=== PATIENT | female | born 1960 | race Hispanic/Latino ===

== ENCOUNTER 2018-09-16 13:05 | Observation (INO) | payer MEDICARE ==
[~2018-09-16] VITALS: Ht 160 cm; Wt 110.5 kg
[~2018-09-16 13:05] MED LIST: ASPI-1197 PO; ATOR20TA65 PO; DULO60CA63 PO; FENO134C PO; FURO20TA4 PO; GLIM2TAB3 PO; INSU100I21 SQ; LISI1TAB11 PO; LORA0.5T2 PO; METO5TAB2 PO; MOME0.5P MC; PANT20TA12 PO; PIOG30TA70 PO; SOLI10TA PO; TOPI50TA24 PO; [UNRECOGNIZED DRUG - CODE] PO
[2018-09-16] MEDS ORDERED: ASPIRIN 325 MG TABLET ONE (13:44)
[2018-09-16 14:04] LABS: CREATINE KINASE, TOTAL 58 U/L (21-232); MYOGLOBIN 40 ng/mL (10-92); TROPONIN I < 0.04 ng/mL (0.00-0.06)
[2018-09-16 14:46] LABS: BASOPHILS % (AUTO) 0.7 % (0.0-5.0); EOSINOPHILS % (AUTO) 4.5 % (0.0-8.0); HEMATOCRIT 40.1 % (36-48); MEAN CORPUSCULAR HEMOGLOBIN 27.6 pg (27.0-33.0); MEAN CORPUSCULAR HGB CONC 33.3 g/dL (32.0-36.0); MEAN CORPUSCULAR VOLUME 83.1 fL (79-99); NEUTROPHILS % (AUTO) 66.8 % (40.0-77.0); PLATELET COUNT (AUTO) 286 K/uL (130-400); RED BLOOD CELL COUNT(AUTO) 4.82 MIL/uL (4.00-5.50); RED CELL DISTRIBUTION WIDTH 15.5 % (11.0-15.5); WHITE BLOOD COUNT (AUTO) 8.2 K/uL (4.8-10.8)
[2018-09-16 14:49] LABS: POTASSIUM 4.7 mmol/L (3.5-5.1)
[2018-09-16 14:51] LABS: PARTIAL THROMBOPLASTIN TIME 30.1 SEC (26.3-35.5); PROTHROMBIN TIME 10.5 SEC (9.6-11.6)
[2018-09-16 14:57] LABS: ALBUMIN 3.8 g/dL (3.5-5.0); BILIRUBIN,TOTAL 0.4 mg/dL (0.2-1.0); TOTAL PROTEIN, SERUM 7.1 g/dL (6.0-8.3)
[2018-09-16] MEDS ORDERED: MORPHINE SULFATE 2 MG/ML 1ML SYG IV PRN (18:00)
[2018-09-16] MEDS ORDERED: NITROGLYCERIN 0.4 MG SL TAB SL PRN (18:00)
[2018-09-16] MEDS ORDERED: ONDANSETRON HCL 4 MG/2 ML VIAL IV PRN (18:00)
[2018-09-16] MEDS ORDERED: ACETAMINOPHEN 325 MG TAB PO PRN ×2 (18:00)
[2018-09-16 19:02] LABS: CREATINE KINASE, TOTAL 43 U/L (21-232); MYOGLOBIN 27 ng/mL (10-92); TROPONIN I < 0.04 ng/mL (0.00-0.06)
[2018-09-16 19:06] VITALS: BP 149/89
[2018-09-16] MEDS ORDERED: IOHEXOL-350 75 ML VIAL IV ONE (22:18)
[2018-09-16] MEDS: FAMOTIDINE/PF 20 MG/2 ML VIAL IV SCH (22:33)
[2018-09-16 23:47] VITALS: BP 151/91
[2018-09-17 02:26] LABS: CREATINE KINASE, TOTAL 43 U/L (21-232); MYOGLOBIN 30 ng/mL (10-92); TROPONIN I < 0.04 ng/mL (0.00-0.06)
[2018-09-17 04:00] VITALS: BP 131/66
[2018-09-17] MEDS ORDERED: [UNRECOGNIZED DRUG - OTHER] PO (04:06)
[2018-09-17] MEDS ORDERED: PANT40TA25 PO (04:06)
[2018-09-17] MEDS ORDERED: LEVO50TA11 PO (04:06)
[2018-09-17] MEDS ORDERED: GABA-531 PO (04:11)
[2018-09-17] MEDS ORDERED: LIRA0.6P SQ (04:11)
[2018-09-17] MEDS ORDERED: INSU100V37 SQ (04:11)
[2018-09-17] MEDS ORDERED: HYDR-4068 PO (04:32)
[2018-09-17] MEDS ORDERED: LORA0.5T2 PO (04:32)
[2018-09-17 07:30] VITALS: BP 116/70
[2018-09-17] MEDS ORDERED: INSULIN HUMULIN R 100 UNIT/ML 3ML SQ SCH (07:30)
[2018-09-17] MEDS: FAMOTIDINE/PF 20 MG/2 ML VIAL IV SCH (08:40)
[2018-09-17] MEDS ORDERED: ENOXAPARIN SODIUM 40 MG/0.4 ML SYRINGE SQ SCH (09:00)
[2018-09-17] MEDS ORDERED: ASPIRIN 325 MG TABLET PO SCH (09:00)
[2018-09-17 10:23] LABS: CREATINE KINASE, TOTAL 42 U/L (21-232); MYOGLOBIN 29 ng/mL (10-92); TROPONIN I < 0.04 ng/mL (0.00-0.06)
[2018-09-17 11:00] VITALS: BP 157/90
--- NOTE | 2018-09-17 11:27 | NUR ---
DISCHARGE PATIENT GIVEN DISCHARGE INSTRUCTIONS VIA TEACH BACK. PATIENT TO FOLLOW UP WITH DR. ROSAS ON 09/24/18 AT 0930. NO RX GIVEN, PATIENT TO CONTINUE HOME MEDS. 20G PIV TO RFA DISCONTINUED, TIP INTACT. TELE REMOVED AND TAKEN TO TELEMETRY BY STEVE YORK. PATIENT STABLE AT THIS TIME.
== END 2018-09-17 11:30 | disposition home or self-care (01) ==
LOC: EDH 13:05 → EDHIP 17:55 → 3DH 19:07
PROVIDERS: ADMIT Family Medicine; ATTEND Family Medicine
DX: R07.89 Other chest pain (principal); E11.65 Type 2 diabetes mellitus with hyperglycemia; G47.30 Sleep apnea, unspecified; E78.2 Mixed hyperlipidemia; I10 Essential (primary) hypertension; K21.9 Gastro-esophageal reflux disease without esophagitis; E66.9 Obesity, unspecified; R79.1 Abnormal coagulation profile; Z79.4 Long term (current) use of insulin; Z79.82 Long term (current) use of aspirin; Z86.73 Personal history of transient ischemic attack (TIA), and cerebral infarction without residual deficits; Z90.711 Acquired absence of uterus with remaining cervical stump; Z82.49 Family history of ischemic heart disease and other diseases of the circulatory system; Z79.899 Other long term (current) drug therapy; Z88.1 Allergy status to other antibiotic agents
CPT/HCPCS: 36415 ×2; 71045; 71275; 80053; 82550 ×5; 82948 ×3; 83874 ×4; 84484 ×5; 85025; 85378; 85610; 85730; 93005; 93970; 96374; 96376; 99291; G0378 ×18; J3490 ×2; Q9967

== ENCOUNTER 2019-07-07 11:32 | Emergency (ER) | payer MEDICARE ==
[~2019-07-07 11:32] MED LIST changes: -ATOR20TA65 PO; -DULO60CA63 PO; +GABA-531 PO; -GLIM2TAB3 PO; +HYDR-4068 PO; -INSU100I21 SQ; +INSU100V37 SQ; +LEVO50TA11 PO; +LIRA0.6P SQ; -LISI1TAB11 PO; -METO5TAB2 PO; -MOME0.5P MC; -PANT20TA12 PO; +PANT40TA25 PO; -PIOG30TA70 PO; -SOLI10TA PO; -TOPI50TA24 PO; -[UNRECOGNIZED DRUG - CODE] PO; +[UNRECOGNIZED DRUG - OTHER] PO
[2019-07-07 12:45] LABS: BASOPHILS % (AUTO) 0.3 % (0.0-5.0); EOSINOPHILS % (AUTO) 0.5 % (0.0-8.0); HEMATOCRIT 44.8 % (36-48); LYMPHOCYTES % (AUTO) 11.5 % (21.0-51.0); MEAN CORPUSCULAR HEMOGLOBIN 25.4 pg (27.0-33.0); MEAN CORPUSCULAR HGB CONC 31.3 g/dL (32.0-36.0); MEAN CORPUSCULAR VOLUME 81.2 fL (79-99); MONOCYTES % (AUTO) 2.8 % (3.0-13.0); NEUTROPHILS % (AUTO) 84.2 % (40.0-77.0); PLATELET COUNT (AUTO) 355 K/uL (130-400); RED BLOOD CELL COUNT(AUTO) 5.52 MIL/uL (4.00-5.50); WHITE BLOOD COUNT (AUTO) 15.1 K/uL (4.8-10.8)
[2019-07-07 12:45] LABS: APPEARANCE,URINE Clear (CLEAR); BILIRUBIN,URINE Negative (NEGATIVE); COLOR,URINE Yellow (YELLOW); GLUCOSE, URINE (UA) >=1000 mg/dL (NEGATIVE); KETONES,URINE Trace mg/dL (NEGATIVE); LEUKOCYTE ESTERASE ,URINE Negative (NEGATIVE); NITRATE,URINE Negative (NEGATIVE); OCCULT BLOOD,URINE Trace (NEGATIVE); PROTEIN,URINE POS 1+ mg/dL (NEGATIVE)
[2019-07-07 12:57] LABS: BILIRUBIN,TOTAL 0.5 mg/dL (0.2-1.0); CREATININE 0.9 mg/dL (0.5-1.5)
[2019-07-07 13:30] LABS: POTASSIUM 4.4 mmol/L (3.5-5.1)
[2019-07-07 13:48] LABS: BACTERIA,URINE Rare /HPF (None Seen); RBC,URINE 0-1 /HPF (0-1); WBC,URINE None Seen /HPF (0-1)
[2019-07-07] MEDS ORDERED: SODIUM CHLORIDE 0.9% 1000ML 1,000 ML IV ONE (14:01)
[2019-07-07] MEDS ORDERED: ONDANSETRON HCL 4 MG/2 ML VIAL ONE (14:01)
[2019-07-07] MEDS ORDERED: MORPHINE SULFATE 4 MG/1ML SYG ONE (14:01)
[2019-07-07] MEDS ORDERED: CEFTRIAXONE SODIUM 1 GM ONE (16:13)
== END 2019-07-07 16:51 | disposition home or self-care (01) ==
LOC: EDH 11:32
DX: K52.9 Noninfective gastroenteritis and colitis, unspecified (principal); E11.9 Type 2 diabetes mellitus without complications; E78.5 Hyperlipidemia, unspecified; I10 Essential (primary) hypertension; Z88.1 Allergy status to other antibiotic agents
CPT/HCPCS: 36415; 74176; 76705; 80053; 81001; 82550; 83690; 84484; 85025; 93005; 96361; 96374; 96375; 99285; J0696; J2270; J2405; J7030

== ENCOUNTER 2020-11-21 16:51 | Emergency (ER) | payer OTHER, MEDICARE ==
[~2020-11-21] VITALS: Ht 160 cm; Wt 117.9 kg
[~2020-11-21 16:51] MED LIST changes: -PANT40TA25 PO; +PANT40TA54 PO
[2020-11-21 16:54] VITALS: BP 147/55
[2020-11-21 17:54] LABS: BASOPHILS % (AUTO) 0.3 % (0.0-5.0); EOSINOPHILS % (AUTO) 2.6 % (0.0-8.0); HEMATOCRIT 40.2 % (36-48); LYMPHOCYTES % (AUTO) 12.4 % (21.0-51.0); MEAN CORPUSCULAR HEMOGLOBIN 25.8 pg (27.0-33.0); MEAN CORPUSCULAR HGB CONC 30.6 g/dL (32.0-36.0); MEAN CORPUSCULAR VOLUME 84.3 fL (79-99); MONOCYTES % (AUTO) 8.5 % (3.0-13.0); NEUTROPHILS % (AUTO) 75.5 % (40.0-77.0); PLATELET COUNT (AUTO) 375 K/uL (130-400); RED BLOOD CELL COUNT(AUTO) 4.77 MIL/uL (4.00-5.50); RED CELL DISTRIBUTION WIDTH 15.9 % (11.0-15.5); WHITE BLOOD COUNT (AUTO) 15.2 K/uL (4.8-10.8)
[2020-11-21 18:08] VITALS: BP 101/66
[2020-11-21 18:09] VITALS: BP 114/43
[2020-11-21 18:14] LABS: CARBON DIOXIDE 29 mmol/L (21-32); CHLORIDE 101 mmol/L (101-111); CREATININE 1.5 mg/dL (0.5-1.5); GLOMERULAR FILTR. RATE CALC 38 mL/min (>60); GLUCOSE,RANDOM 268 mg/dL (70-105); POTASSIUM 5.3 mmol/L (3.5-5.1); SODIUM SERUM 139 mmol/L (136-145); UREA NITROGEN, BLOOD 29 mg/dL (7-18)
[2020-11-21 18:24] LABS: B-TYPE NATRIURETIC PEPTIDE 7 pg/mL (0-100)
[2020-11-21 18:41] LABS: ALANINE AMINOTRANSFERASE 17 U/L (12-78); ALBUMIN 3.6 g/dL (3.5-5.0); ASPARTATE AMINOTRANSFERASE 13 U/L (10-37); BILIRUBIN,TOTAL 0.3 mg/dL (0.2-1.0); CREATINE KINASE, TOTAL 40 U/L (21-232); TOTAL PROTEIN, SERUM 7.2 g/dL (6.0-8.3); TROPONIN I < 0.04 ng/mL (0.00-0.06)
[2020-11-21 18:58] LABS: MYOGLOBIN 81 ng/mL (10-92)
[2020-11-21 20:24] LABS: APPEARANCE,URINE Clear (CLEAR); BILIRUBIN,URINE Negative (NEGATIVE); COLOR,URINE Yellow (YELLOW); GLUCOSE, URINE (UA) >=1000 mg/dL (NEGATIVE); KETONES,URINE Negative (NEGATIVE); LEUKOCYTE ESTERASE ,URINE Negative (NEGATIVE); NITRATE,URINE Positive (NEGATIVE); OCCULT BLOOD,URINE Negative (NEGATIVE); PROTEIN,URINE Negative (NEGATIVE); UROBILINOGEN,URINE 0.2 mg/dL (0.2-1.0)
[2020-11-21 20:41] LABS: BACTERIA,URINE Moderate /HPF (None Seen); MUCUS,URINE Few LPF (None Seen); SQUAMOUS EPITHELIAL CELL,UR Few /HPF (0-2)
[2020-11-21] MEDS ORDERED: CEPH500B PO (22:57)
[2020-11-21] MEDS ORDERED: KAYEXALATE 15GM/60ML PO ONE (23:00)
[2020-11-21] MEDS ORDERED: CEFTRIAXONE 1G VIAL 1 GM in 0.9%NACL 50ML 50 ML IV ONE (23:00)
[2020-11-22 00:10] VITALS: BP 120/53
== END 2020-11-22 00:20 | disposition home or self-care (01) ==
LOC: EDH 16:51
DX: N39.0 Urinary tract infection, site not specified (principal); E11.65 Type 2 diabetes mellitus with hyperglycemia; M54.6 Pain in thoracic spine; E03.9 Hypothyroidism, unspecified; C20 Malignant neoplasm of rectum; E78.00 Pure hypercholesterolemia, unspecified; I10 Essential (primary) hypertension; Z79.899 Other long term (current) drug therapy; Z86.73 Personal history of transient ischemic attack (TIA), and cerebral infarction without residual deficits; Z88.1 Allergy status to other antibiotic agents; Z79.82 Long term (current) use of aspirin; Z79.4 Long term (current) use of insulin
CPT/HCPCS: 36415; 71275; 76705; 80053; 81001; 82550; 83690; 83874; 83880; 84484; 85025; 87077; 87088; 87186; 93005

== ENCOUNTER 2020-12-30 17:20 | Emergency (ER) | payer OTHER, MEDICARE ==
[~2020-12-30] VITALS: Ht 160 cm; Wt 112.5 kg
[~2020-12-30 17:20] MED LIST changes: +CEPH500B PO
[2020-12-30 17:23] VITALS: BP 141/65
[2020-12-30] MEDS ORDERED: PROMETHAZINE HCL 25 MG/ML 1ML AMPULE IM ONE (18:00)
[2020-12-30] MEDS ORDERED: MAG/ALUM/SIMETH 30 ML UDCUP PO ONE (18:00)
[2020-12-30] MEDS ORDERED: LIDOCAINE HCL 2% VISCOUS 15 ML UDCUP PO ONE (18:00)
[2020-12-30] MEDS ORDERED: 0.9%NACL 1000ML 1,000 ML IV SCH (18:00)
[2020-12-30 18:11] VITALS: BP 160/79
[2020-12-30] MEDS ORDERED: 0.9%NACL 1000ML 1,000 ML IV ONE (18:21)
[2020-12-30 18:34] LABS: BASOPHILS % (AUTO) 0.6 % (0.0-5.0); HEMATOCRIT 33.2 % (36-48); LYMPHOCYTES % (AUTO) 3.1 % (21.0-51.0); MEAN CORPUSCULAR HEMOGLOBIN 25.8 pg (27.0-33.0); MEAN CORPUSCULAR HGB CONC 30.7 g/dL (32.0-36.0); MEAN CORPUSCULAR VOLUME 84.1 fL (79-99); MONOCYTES % (AUTO) 0.6 % (3.0-13.0); NEUTROPHILS % (AUTO) 91.2 % (40.0-77.0); PLATELET COUNT (AUTO) 414 K/uL (130-400); RED BLOOD CELL COUNT(AUTO) 3.95 MIL/uL (4.00-5.50); RED CELL DISTRIBUTION WIDTH 14.9 % (11.0-15.5); WHITE BLOOD COUNT (AUTO) 6.2 K/uL (4.8-10.8)
[2020-12-30 18:35] LABS: APPEARANCE,URINE Clear (CLEAR); BILIRUBIN,URINE Negative (NEGATIVE); COLOR,URINE Yellow (YELLOW); GLUCOSE, URINE (UA) >=1000 mg/dL (NEGATIVE); KETONES,URINE >=160 mg/dL (NEGATIVE); LEUKOCYTE ESTERASE ,URINE Negative (NEGATIVE); NITRATE,URINE Negative (NEGATIVE); OCCULT BLOOD,URINE Negative (NEGATIVE); PROTEIN,URINE Trace mg/dL (NEGATIVE)
[2020-12-30 18:41] LABS: BACTERIA,URINE Rare /HPF (None Seen); RBC,URINE 0-1 /HPF (0-1); YEAST,URINE BUDDING Few /HPF (None Seen)
[2020-12-30 18:42] LABS: SQUAMOUS EPITHELIAL CELL,UR Rare /HPF (0-2)
[2020-12-30 18:43] LABS: CALCIUM OXALATE CRYSTALS,UR Few /LPF (None Seen)
[2020-12-30 18:46] LABS: CREATININE 0.8 mg/dL (0.5-1.5); POTASSIUM 4.5 mmol/L (3.5-5.1)
[2020-12-30 18:51] LABS: ALBUMIN 3.4 g/dL (3.5-5.0); BILIRUBIN,TOTAL 0.5 mg/dL (0.2-1.0); CRP QUANTITATIVE 57.4 mg/L (0.00-9.0); TOTAL PROTEIN, SERUM 7.5 g/dL (6.0-8.3)
[2020-12-30] MEDS ORDERED: DICY20TA2 PO (19:16)
[2020-12-30] MEDS ORDERED: FAMO-136 PO (19:16)
[2020-12-30 19:25] VITALS: BP 156/77
== END 2020-12-30 19:53 | disposition home or self-care (01) ==
LOC: EDH 17:20
DX: K29.70 Gastritis, unspecified, without bleeding (principal); E11.65 Type 2 diabetes mellitus with hyperglycemia; I10 Essential (primary) hypertension; E03.9 Hypothyroidism, unspecified; E66.9 Obesity, unspecified; E78.00 Pure hypercholesterolemia, unspecified; Z79.82 Long term (current) use of aspirin; Z79.899 Other long term (current) drug therapy; Z79.4 Long term (current) use of insulin; Z85.038 Personal history of other malignant neoplasm of large intestine; Z88.1 Allergy status to other antibiotic agents
CPT/HCPCS: 36415; 71045; 74176; 80053; 81001; 83690; 84484; 85025; 86140; 93005; 96372; 99285; J2550; J7030

== ENCOUNTER 2021-09-06 09:57 | Emergency (ER) | payer OTHER, MEDICARE ==
[~2021-09-06] VITALS: Ht 160 cm; Wt 111.1 kg
[~2021-09-06 09:57] MED LIST changes: +DICY20TA2 PO; +FAMO-136 PO; -FENO134C PO; +FENO134C21 PO
[2021-09-06 10:27] LABS: BASOPHILS % (AUTO) 0.2 % (0.0-5.0); EOSINOPHILS % (AUTO) 0.3 % (0.0-8.0); HEMATOCRIT 43.3 % (36-48); LYMPHOCYTES % (AUTO) 8.9 % (21.0-51.0); MEAN CORPUSCULAR HEMOGLOBIN 26.5 pg (27.0-33.0); MEAN CORPUSCULAR HGB CONC 31.9 g/dL (32.0-36.0); MEAN CORPUSCULAR VOLUME 83.1 fL (79-99); MONOCYTES % (AUTO) 5.1 % (3.0-13.0); PLATELET COUNT (AUTO) 316 K/uL (130-400); RED BLOOD CELL COUNT(AUTO) 5.21 MIL/uL (4.00-5.50); RED CELL DISTRIBUTION WIDTH 14.6 % (11.0-15.5)
[2021-09-06] MEDS ORDERED: DICYCLOMINE HCL 10 MG/5 ML ML PO SCH (10:30)
[2021-09-06] MEDS ORDERED: LIDOCAINE HCL 2% VISCOUS 15 ML UDCUP PO SCH (10:30)
[2021-09-06] MEDS ORDERED: MAG/ALUM/SIMETH 30 ML UDCUP ONE (10:32)
[2021-09-06 10:37] LABS: APPEARANCE,URINE Clear (CLEAR); BILIRUBIN,URINE Negative (NEGATIVE); COLOR,URINE Yellow (YELLOW); GLUCOSE, URINE (UA) >=1000 mg/dL (NEGATIVE); KETONES,URINE Trace mg/dL (NEGATIVE); LEUKOCYTE ESTERASE ,URINE Negative (NEGATIVE); NITRATE,URINE Negative (NEGATIVE); OCCULT BLOOD,URINE Nonhemolyzed Trace (NEGATIVE); PH,URINE 5.5 (5.0-8.0); PROTEIN,URINE POS 1+ mg/dL (NEGATIVE)
[2021-09-06 10:42] LABS: CHLORIDE 101 mmol/L (101-111); POTASSIUM 4.3 mmol/L (3.5-5.1); SODIUM SERUM 140 mmol/L (136-145)
[2021-09-06 10:43] LABS: CARBON DIOXIDE 29 mmol/L (21-32); CREATININE 0.8 mg/dL (0.5-1.5); GLOMERULAR FILTR. RATE CALC 78 mL/min (>60); GLUCOSE,RANDOM 159 mg/dL (70-105); UREA NITROGEN, BLOOD 15 mg/dL (7-18)
[2021-09-06 10:48] LABS: BACTERIA,URINE Rare /HPF (None Seen); RBC,URINE 0-1 /HPF (0-1); SQUAMOUS EPITHELIAL CELL,UR Rare /HPF (0-2); WBC,URINE 0-1 /HPF (0-1)
[2021-09-06 10:50] LABS: ALANINE AMINOTRANSFERASE 19 U/L (12-78); ALBUMIN 3.7 g/dL (3.5-5.0); ASPARTATE AMINOTRANSFERASE 16 U/L (10-37); BILIRUBIN,TOTAL 0.5 mg/dL (0.2-1.0); LIPASE < 50 U/L (114-286)
[2021-09-06] MEDS ORDERED: PANTOPRAZOLE 40 MG/VIAL IVP SCH (11:30)
[2021-09-06] MEDS ORDERED: KETOROLAC 30MG VIAL (30MG/ML) IVP SCH (11:30)
[2021-09-06] MEDS ORDERED: FAMO20TA8 PO (12:24)
[2021-09-06 13:06] VITALS: BP 135/74
== END 2021-09-06 13:07 | disposition home or self-care (01) ==
LOC: EDH 09:57
DX: K21.9 Gastro-esophageal reflux disease without esophagitis (principal); F41.9 Anxiety disorder, unspecified; E11.9 Type 2 diabetes mellitus without complications; I10 Essential (primary) hypertension; Z88.1 Allergy status to other antibiotic agents; Z79.899 Other long term (current) drug therapy; Z79.4 Long term (current) use of insulin; Z79.82 Long term (current) use of aspirin; Z98.890 Other specified postprocedural states
CPT/HCPCS: 36415; 80053; 81001; 83690; 84484; 85025; 93005; 96374; 96375; 99284; C9113; J1885

== ENCOUNTER 2022-03-30 11:32 | Emergency (ER) | payer OTHER, MEDICARE ==
[~2022-03-30] VITALS: Ht 160 cm; Wt 122.5 kg
[~2022-03-30 11:32] MED LIST changes: +FAMO20TA8 PO
[2022-03-30] MEDS ORDERED: MAG/ALUM/SIMETH 30 ML UDCUP PO ONE (12:00)
[2022-03-30] MEDS ORDERED: LIDOCAINE HCL 2% VISCOUS 15 ML UDCUP PO ONE (12:00)
[2022-03-30 12:12] LABS: BASOPHILS % (AUTO) 0.3 % (0.0-5.0); EOSINOPHILS % (AUTO) 0.1 % (0.0-8.0); HEMATOCRIT 41.7 % (36-48); LYMPHOCYTES % (AUTO) 8.5 % (21.0-51.0); MEAN CORPUSCULAR HEMOGLOBIN 26.6 pg (27.0-33.0); MEAN CORPUSCULAR HGB CONC 31.7 g/dL (32.0-36.0); MEAN CORPUSCULAR VOLUME 84.1 fL (79-99); MONOCYTES % (AUTO) 2.5 % (3.0-13.0); NEUTROPHILS % (AUTO) 88.1 % (40.0-77.0); PLATELET COUNT (AUTO) 326 K/uL (130-400); RED BLOOD CELL COUNT(AUTO) 4.96 MIL/uL (4.00-5.50); RED CELL DISTRIBUTION WIDTH 15.1 % (11.0-15.5); WHITE BLOOD COUNT (AUTO) 11.3 K/uL (4.8-10.8)
[2022-03-30 12:21] LABS: POTASSIUM 4.3 mmol/L (3.5-5.1)
[2022-03-30 12:31] LABS: TOTAL PROTEIN, SERUM 8.1 g/dL (6.0-8.3)
[2022-03-30 12:42] LABS: APPEARANCE,URINE CLEAR (CLEAR); BILIRUBIN,URINE NEGATIVE (NEGATIVE); COLOR,URINE LIGHT-YELLOW (YELLOW); GLUCOSE, URINE (UA) >=1000 mg/dL (NEGATIVE); KETONES,URINE 10 mg/dL (NEGATIVE); LEUKOCYTE ESTERASE ,URINE NEGATIVE Leu/uL (NEGATIVE); NITRATE,URINE NEGATIVE (NEGATIVE); OCCULT BLOOD,URINE SMALL (NEGATIVE); PROTEIN,URINE NEGATIVE (NEGATIVE); UROBILINOGEN,URINE 0.2 mg/dL (0.2-1.0)
[2022-03-30 12:48] LABS: BACTERIA,URINE RARE /HPF (None Seen); MUCUS,URINE RARE LPF (None Seen); SQUAMOUS EPITHELIAL CELL,UR RARE /HPF (0-2)
[2022-03-30] MEDS ORDERED: MAG-55 PO (12:49)
[2022-03-30] MEDS ORDERED: OMEP40CA21 PO (12:49)
[2022-03-30 13:13] VITALS: BP 132/81
== END 2022-03-30 13:41 | disposition home or self-care (01) ==
LOC: EDH 11:32
DX: K29.00 Acute gastritis without bleeding (principal); F41.9 Anxiety disorder, unspecified; E11.9 Type 2 diabetes mellitus without complications; K21.9 Gastro-esophageal reflux disease without esophagitis; I10 Essential (primary) hypertension; G89.29 Other chronic pain; Z98.890 Other specified postprocedural states; Z79.899 Other long term (current) drug therapy; Z79.82 Long term (current) use of aspirin; Z79.4 Long term (current) use of insulin; Z88.8 Allergy status to other drugs, medicaments and biological substances
CPT/HCPCS: 36415; 80053; 81001; 82150; 83690; 84484; 85025